=== PATIENT | female | born 1990 | race African-American/Black ===

== ENCOUNTER 2016-09-27 03:49 | Emergency (ER) | payer OTHER ==
[~2016-09-27] VITALS: Ht 157.5 cm; Wt 82.0 kg
[~2016-09-27 03:49] MED LIST: ASCO500T12 PO; CITA10TA4 PO; CLON-365 PO; CYAN100028 PO; DIPH25CA61 PO; LAMO200T49 PO; QUET50TA5 PO; VENL150T PO; VENL37.52 PO; ZIPR60CA3 PO
[2016-09-27 04:06] VITALS: BP 140/90
[2016-09-27] MEDS ORDERED: TOPI25CA5 PO (04:14)
[2016-09-27] MEDS ORDERED: DIAZ2TAB3 PO (04:14)
[2016-09-27] MEDS ORDERED: RISP1TAB3 PO (04:14)
[2016-09-27] MEDS ORDERED: BUPR-173 PO (04:14)
[2016-09-27 04:37] LABS: DAU SCREEN DISCLAIMER
[2016-09-27 04:52] LABS: HEMOGLOBIN 14.2 g/dL (11.7-16.4)
[2016-09-27 05:04] LABS: BLOOD UREA NITROGEN 14 mg/dL (7-18)
[2016-09-27 05:09] LABS: ASPARTATE AMINO TRANSFERASE 12 U/L (15-37)
[2016-09-27 05:16] LABS: ACETAMINOPHEN < 2 mcg/mL (10-30)
== END 2016-09-27 08:46 | disposition home or self-care (01) ==
LOC: ED 05:39
DX: F20.0 Paranoid schizophrenia (principal); F32.9 Major depressive disorder, single episode, unspecified
CPT/HCPCS: 36415; 80053; 80307; 80329; 81003; 84703; 85025; G0480

== ENCOUNTER 2018-02-19 16:48 | Emergency (ER) | payer MEDICAID, OTHER ==
[~2018-02-19] VITALS: Ht 157.5 cm; Wt 78.0 kg
[~2018-02-19 16:48] MED LIST changes: +BUPR-173 PO; -CLON-365 PO; +CLON1TAB4 PO; +DIAZ2TAB3 PO; +RISP1TAB3 PO; +TOPI25CA5 PO
[2018-02-19 17:34] LABS: BASOPHILS # (AUTO) 0.04 x10^3/uL (0-0.1); BASOPHILS % (AUTO) 1 % (0-1); EOSINOPHILS # (AUTO) 0.08 x10^3/uL (0-0.4); EOSINOPHILS % (AUTO) 1 % (1-7); LYMPHOCYTES % (AUTO) 25 % (22-44); MD NO; MEAN CORPUSCULAR HEMOGLOBIN 23.6 pg (27.0-34.8); MEAN CORPUSCULAR HGB CONC 32.4 g/dL (32.4-35.8); MEAN PLATELET VOLUME 8.4 fL (7.4-10.4); MONOCYTES # (AUTO) 0.47 x10^3/uL (0.2-0.8); MONOCYTES % (AUTO) 7 % (2-9); NEUTROPHILS # (AUTO) 4.73 x10^3/uL (1.8-6.8); NEUTROPHILS % (AUTO) 67 % (42-75); PLATELET COUNT 360 x10^3/uL (130-400); RED BLOOD COUNT 4.06 x10^6/uL (3.82-5.3); RED CELL DISTRIBUTION WIDTH 14.4 % (9.6-15.2)
[2018-02-19 17:35] LABS: ALBUMIN 3.8 g/dL (3.4-5.0); ANION GAP 6 mmol/L (5-15); CALCIUM 8.8 mg/dL (8.5-10.1); CHLORIDE 106 mmol/L (98-107)
[2018-02-19 17:43] LABS: MICROSCOPIC AUTO
[2018-02-19 17:51] LABS: CULTURE INDICATED? YES
[2018-02-19 18:41] VITALS: BP 108/60
== END 2018-02-19 18:44 | disposition home or self-care (01) ==
LOC: ED 17:53
DX: N39.0 Urinary tract infection, site not specified (principal); D50.9 Iron deficiency anemia, unspecified
CPT/HCPCS: 36415; 71045; 80048; 81001; 82040; 83735; 84439; 84443; 84703; 85025; 87086; 93005; 99285

== ENCOUNTER 2018-08-10 11:42 | Emergency (ER) | payer MEDICARE, MEDICAID ==
[~2018-08-10] VITALS: Ht 157.5 cm; Wt 79.4 kg
[~2018-08-10 11:42] MED LIST changes: +CLON1TAB11 PO; -CLON1TAB4 PO
--- NOTE | 2018-08-10 12:49 | NUR ---
PT AMBULATED TO ROOM, NAD. GIVEN URINE SPECIMEN CUP
[2018-08-10 12:50] LABS: BASOPHILS # (AUTO) 0.02 x10^3/uL (0-0.1); BASOPHILS % (AUTO) 0 % (0-1); EOSINOPHILS # (AUTO) 0.21 x10^3/uL (0-0.4); EOSINOPHILS % (AUTO) 2 % (1-7); LYMPHOCYTES # (AUTO) 1.59 x10^3/uL (1-3.4); LYMPHOCYTES % (AUTO) 13 % (22-44); MD NO; MEAN CORPUSCULAR HEMOGLOBIN 26.1 pg (27.0-34.8); MEAN CORPUSCULAR HGB CONC 32.7 g/dL (32.4-35.8); MEAN CORPUSCULAR VOLUME 79.8 fL (80-100); MEAN PLATELET VOLUME 8.8 fL (7.4-10.4); MONOCYTES # (AUTO) 0.42 x10^3/uL (0.2-0.8); MONOCYTES % (AUTO) 3 % (2-9); NEUTROPHILS # (AUTO) 10.23 x10^3/uL (1.8-6.8); NEUTROPHILS % (AUTO) 82 % (42-75); PLATELET COUNT 332 x10^3/uL (130-400); RED BLOOD COUNT 4.86 x10^6/uL (3.82-5.3); RED CELL DISTRIBUTION WIDTH 14.5 % (9.6-15.2)
[2018-08-10 12:52] LABS: ALBUMIN 3.9 g/dL (3.4-5.0); ANION GAP 8 mmol/L (5-15); CALCIUM 8.4 mg/dL (8.5-10.1); CHLORIDE 110 mmol/L (98-107)
[2018-08-10 13:01] VITALS: BP 122/77
[2018-08-10 13:23] LABS: MICROSCOPIC INDICATED
[2018-08-10 13:24] LABS: HCG UR SG > 1.030 (1.003-1.030)
[2018-08-10 13:39] LABS: CULTURE INDICATED? YES
--- NOTE | 2018-08-10 13:46 | NUR ---
PT D/C WITH D/C SUMMARY AND SCRIPTS. ALL QUESTIONS ANSWERED. PT PROVIDED WITH EXPLANATION OF [facility] AND VERBALIZES UNDERSTANDING.
== END 2018-08-10 13:49 | disposition home or self-care (01) ==
LOC: ED 12:53
DX: N30.01 Acute cystitis with hematuria (principal); R10.30 Lower abdominal pain, unspecified; F25.9 Schizoaffective disorder, unspecified; F32.9 Major depressive disorder, single episode, unspecified
CPT/HCPCS: 36415; 80048; 81001; 81025; 82040; 85025; 87077; 87086; 87186; 99283

== ENCOUNTER 2018-10-25 04:40 | Emergency (ER) | payer MEDICARE, MEDICAID ==
[~2018-10-25] VITALS: Ht 157.5 cm; Wt 83.5 kg
[2018-10-25] MEDS ORDERED: MECLIZINE CHEWABLE 25 MG TAB ONE (05:13)
--- NOTE | 2018-10-25 05:15 | NUR ---
Plan of care discussed with patient, verbalizes understanding.
[2018-10-25] MEDS ORDERED: MECLIZINE CHEWABLE 25 MG TAB PO ONE (05:30)
[2018-10-25] MEDS ORDERED: ONDANSETRON ODT 4 MG PO ONE (05:30)
[2018-10-25] MEDS ORDERED: ONDANSETRON ODT 4 MG ONE (05:38)
[2018-10-25 05:45] LABS: BASOPHILS # (AUTO) 0.05 x10^3/uL (0-0.1); BASOPHILS % (AUTO) 1 % (0-1); EOSINOPHILS # (AUTO) 0.19 x10^3/uL (0-0.4); EOSINOPHILS % (AUTO) 2 % (1-7); LYMPHOCYTES # (AUTO) 2.49 x10^3/uL (1-3.4); LYMPHOCYTES % (AUTO) 27 % (22-44); MD NO; MEAN CORPUSCULAR HEMOGLOBIN 27.7 pg (27.0-34.8); MEAN CORPUSCULAR VOLUME 81.6 fL (80-100); MONOCYTES # (AUTO) 0.47 x10^3/uL (0.2-0.8); MONOCYTES % (AUTO) 5 % (2-9); NEUTROPHILS % (AUTO) 65 % (42-75); PLATELET COUNT 305 x10^3/uL (130-400); RED CELL DISTRIBUTION WIDTH 14.9 % (9.6-15.2)
[2018-10-25 05:56] LABS: ALBUMIN 3.8 g/dL (3.4-5.0); ANION GAP 9 mmol/L (5-15); CHLORIDE 112 mmol/L (98-107); CREATININE 0.79 mg/dL (0.55-1.02)
--- NOTE | 2018-10-25 06:30 | NUR ---
Discharge instructions discussed with patient, prescriptions provided with instruction for use, patient verbalizes understanding. Patient dresses independently ambulates with steady gait in no acute distress.
[2018-10-25 06:32] VITALS: BP 127/79
== END 2018-10-25 06:33 | disposition home or self-care (01) ==
LOC: ED 05:16
DX: G44.219 Episodic tension-type headache, not intractable (principal); R42 Dizziness and giddiness; F25.9 Schizoaffective disorder, unspecified
CPT/HCPCS: 36415; 80048; 82040; 84703; 85025; 93005; 99284; Q0162